=== PATIENT | male | born 2000 | race Caucasian/White ===

== ENCOUNTER 2022-02-06 16:01 | Emergency (ER) | payer BC, OTHER ==
[~2022-02-06] VITALS: Ht 182 cm; Wt 77.0 kg
[2022-02-06] MEDS ORDERED: CLINDAMYCIN 900 MG/50 ML IVPB 50 ML IV ONE (16:45)
[2022-02-06 17:06] LABS: BASOPHILS # (AUTO) 0.1 10^3/uL (0.0-0.1); BASOPHILS % (AUTO) 1 % (0-10); EOSINOPHILS # (AUTO) 0.2 10^3/uL (0.0-0.3); EOSINOPHILS % (AUTO) 2 % (0-10); HEMATOCRIT 46 % (40-54); HEMOGLOBIN 15.6 g/dL (13.3-17.7); LYMPHOCYTES # (AUTO) 1.7 10^3/uL (1.0-4.0); LYMPHOCYTES % (AUTO) 18 % (12-44); MEAN CORPUSCULAR HEMOGLOBIN 31 pg (25-34); MEAN CORPUSCULAR HGB CONC 34 g/dL (32-36); MEAN CORPUSCULAR VOLUME 90 fL (80-99); MEAN PLATELET VOLUME 9.9 fL (9.0-12.2); MONOCYTES # (AUTO) 0.7 10^3/uL (0.0-1.0); MONOCYTES % (AUTO) 7 % (0-12); NEUTROPHILS # (AUTO) 6.6 10^3/uL (1.8-7.8); NEUTROPHILS % (AUTO) 72 % (42-75); PLATELET COUNT 242 10^3/uL (130-400); WHITE BLOOD COUNT 9.2 10^3/uL (4.3-11.0)
[2022-02-06 17:15] LABS: POTASSIUM 4.4 MMOL/L (3.6-5.0)
[2022-02-06 17:17] LABS: CALCIUM 9.2 MG/DL (8.5-10.1)
[2022-02-06 17:21] LABS: CREATININE SERUM 0.99 MG/DL (0.60-1.30)
--- NOTE | 2022-02-06 17:47 | ED General ---
General Chief Complaint: Skin/Wound Problems Stated Complaint: INFECTED TATOO Nursing Triage Note: PT AMB TO [facility] 5 WITH PARENT WITH C/O POSSIBLY HAVING AN INFECTION FROM A TATTOO HE GOT ON JANUARY 30. PT SEEN AT [facility] YESTERDAY AND GIVEN ABX Source of Information: Patient, Family Exam Limitations: No Limitations History of Present Illness Date Seen by Provider: Feb 06, 2022 Time Seen by Provider: 16:27 Initial Comments This 21-year-old young man presents to the emergency room with complaints of infected tattoo along the lateral aspect of the right calf. The tattoo was obtained January 30. He noticed a problem with it on February 02 with increasing redness, heat, and pain. The symptoms have since spread down over the entire foot. He presented to urgent care yesterday and was prescribed erythromycin 250 mg 3 times daily. Symptoms have worsened despite taking antibiotics. He is afebrile and not tachycardic. Parts of the tattoo are weeping. The foot is notably swollen. Allergies and Home Medications Allergies Coded Allergies: Penicillins (Verified Allergy, Unknown, HIVES, 02/06/22) Patient Home Medication List Home Medication List Reviewed: Yes Clindamycin HCl (Clindamycin HCl) 300 Mg Capsule, 300 MG PO QID Prescribed by: DEE DALE on 02/06/221747 Sulfamethoxazole/Trimethoprim (Bactrim Ds Tablet) 1 Each Tablet, 1 EACH PO BID Prescribed by: DEE DALE on 02/06/221747 Review of Systems Review of Systems Constitutional: no symptoms reported EENTM: no symptoms reported Respiratory: no symptoms reported Cardiovascular: no symptoms reported Gastrointestinal: no symptoms reported Genitourinary: no symptoms reported Musculoskeletal: no symptoms reported Skin: see HPI Psychiatric/Neurological: No Symptoms Reported Hematologic/Lymphatic: No Symptoms Reported Immunological/Allergic: no symptoms reported Past Qxceljr-Vphsic-Eskead Hx Patient Social History Tobacco Use?: No Use of E-Cig and/or Vaping dev: No Substance use?: No Alcohol Use?: Yes Alcohol type: Beer Alcohol Frequency: Rarely Pt feels they are or have been: No Immunizations Up To Date First/Initial COVID19 Vaccinat: 2020 Second COVID19 Vaccination Heath: 2020 Past Medical History Surgeries: Yes (Camp teeth) Respiratory: No Cardiac: No Neurological: Yes (Stuttering speech) Reproductive Disorders: No Genitourinary: No Gastrointestinal: No Musculoskeletal: No Endocrine: No HEENT: No Cancer: No Psychosocial: No Integumentary: No Physical Exam Vital Signs Vital Signs - First Documented 02/06/22 16:20 Temp 36.3 Pulse 66 Resp 16 B/P (MAP) 110/79 (89) Capillary Refill : Height, Weight, BMI Height: '" Weight: lbs. oz. kg; 23.00 BMI Method: General Appearance: No Apparent Distress, WD/WN HEENT: PERRL/EOMI, Normal ENT Inspection Neck: Normal Inspection Respiratory: Lungs Clear, Normal Breath Sounds, No Accessory Muscle Use Cardiovascular: Regular Rate, Rhythm, No Edema, No Murmur Gastrointestinal: Non Tender, Soft Extremity: Other (Marked erythema, heat, swelling, and tenderness to the lateral aspect of the right leg and encompassing most of the right foot. Palpable pedal pulse. Sensation and capillary refill intact.) Neurologic/Psychiatric: Alert, Oriented x3, No Motor/Sensory Deficits, Normal Mood/Affect, failure analysis engineer II-XII Norm as Tested Skin: Other (As above. Some areas of tattoo are weeping serous fluid) Focused Exam Lactate Level 02/06/22 17:01: Lactic Acid Level 1.80 Lactic Acid Level Laboratory Tests Test 02/06/22 17:01 Lactic Acid Level 1.80 MMOL/L (0.50-2.00) Progress/Results/Core Measures Suspected Sepsis SIRS Temperature: Pulse: 66 Respiratory Rate: 16 Laboratory Tests 02/06/22 16:47: White Blood Count 9.2 Blood Pressure 110 /79 Mean: 89 02/06/22 17:01: Lactic Acid Level 1.80 Laboratory Tests 02/06/22 16:47: Creatinine 0.99, Platelet Count 242 Results/Orders Lab Results Laboratory Tests Test 02/06/22 16:47 02/06/22 17:01 Range/Units White Blood Count 9.2 4.3-11.0 10^3/uL Red Blood Count 5.08 4.30-5.52 10^6/uL Hemoglobin 15.6 13.3-17.7 g/dL Hematocrit 46 40-54 % Mean Corpuscular Volume 90 80-99 fL Mean Corpuscular Hemoglobin 31 25-34 pg Mean Corpuscular Hemoglobin Concent 34 32-36 g/dL Red Cell Distribution Width 11.9 10.0-14.5 % Platelet Count 242 130-400 10^3/uL Mean Platelet Volume 9.9 9.0-12.2 fL Immature Granulocyte % (Auto) 0 % Neutrophils (%) (Auto) 72 42-75 % Lymphocytes (%) (Auto) 18 12-44 % Monocytes (%) (Auto) 7 0-12 % Eosinophils (%) (Auto) 2 0-10 % Basophils (%) (Auto) 1 0-10 % Neutrophils # (Auto) 6.6 1.8-7.8 10^3/uL Lymphocytes # (Auto) 1.7 1.0-4.0 10^3/uL Monocytes # (Auto) 0.7 0.0-1.0 10^3/uL Eosinophils # (Auto) 0.2 0.0-0.3 10^3/uL Basophils # (Auto) 0.1 0.0-0.1 10^3/uL Immature Granulocyte # (Auto) 0.0 0.0-0.1 10^3/uL Sodium Level 140 135-145 MMOL/L Potassium Level 4.4 3.6-5.0 MMOL/L Chloride Level 107 98-107 MMOL/L Carbon Dioxide Level 21 21-32 MMOL/L Anion Gap 12 5-14 MMOL/L Blood Urea Nitrogen 18 7-18 MG/DL Creatinine 0.99 0.60-1.30 MG/DL Estimat Glomerular Filtration Rate 110 BUN/Creatinine Ratio 18 Glucose Level 104 70-105 MG/DL Calcium Level 9.2 8.5-10.1 MG/DL C-Reactive Protein High Sensitivity 1.17 H 0.00-0.50 MG/DL Lactic Acid Level 1.80 0.50-2.00 MMOL/L My Orders Orders - DEE RUELAS MD Cbc With Automated Diff (02/06/22 16:36) Blood Culture (02/06/22 16:36) Ed Iv/Invasive Line Start (02/06/22 16:36) Lactic Acid Analyzer (02/06/22 16:36) Basic Metabolic Panel (02/06/22 16:36) Hs C Reactive Protein (02/06/22 16:36) Clindamycin 900 Mg/50 Ml Ivpb (Cleocin P (02/06/22 16:45) Medications Given in ED Current Medications Medications Dose Ordered Sig/Keith Route Start Time Stop Time Status Last Admin Dose Admin Clindamycin Phosphate/Dextrose 50 ml @ 100 mls/hr ONCE ONCE IV 02/06/22 16:45 02/06/22 17:14 DC 02/06/22 17:04 100 MLS/HR Vital Signs/I&O 02/06/22 02/06/22 16:20 17:59 Temp 36.3 36.3 Pulse 66 64 Resp 16 16 B/P (MAP) 110/79 (89) 112/80 Capillary Refill : Blood Pressure Mean: 89 Progress Note : Progress Note Basic labs were obtained and blood cultures drawn. Labs were unremarkable in comparison to the physical exam. Patient was treated with clindamycin 900 mg IV. He was prescribed clindamycin and Bactrim. Cephalosporins were not attempted as he has a vague description of whole body hives from penicillin products. Because of vital signs were within normal limits and the labs were unremarkable, patient was not admitted. However, he was given strict return precautions for worsening symptoms. Patient was up-to-date on his tetanus immunization. Departure Impression Primary Impression: Cellulitis of right leg Additional Impression: Infected tattoo Disposition: HOME, SELF-CARE Condition: Improved Departure-Patient Inst. Decision time for Depature: 17:43 Referrals: NO,LOCAL PHYSICIAN (PCP/Family) Primary Care Physician Patient Instructions: Cellulitis (Skin Infection), Adult ED Add. Discharge Instructions: Start clindamycin in the morning. Start Bactrim DS tonight. Complete the entire course of antibiotics as prescribed. Monitor progress of the skin affected by the infection. Take a photo daily from each side in the same orientation in the same lighting to monitor progress. Elevate your foot to the level of your heart or higher as much as possible to help reduce swelling. Do not hang the foot below the level of your knee when elevating. Avoid prolonged periods of time standing on your feet until you have significant improvement in symptoms. Avoid strenuous activity until resolution of the infection. You may take Tylenol (acetaminophen) up to 1000 mg every 6 hours as needed an d/or ibuprofen up to 600 mg every 6 hours as needed for pain. Cool clean towels may also be draped across the skin to provide relief of pain. Return to the emergency room if you develop fevers greater than 100 degrees, significantly spreading redness or swelling despite antibiotics, general feelings of illness or chills, lightheadedness, intense headache, shortness of breath, etc. as these could be signs of developing sepsis. You may also return to the emergency room for a wound check to have a provider v isualize the progress if you are concerned. You should establish with a primary care provider and follow-up with a clinic appointment next week. Call with questions or concerns. All discharge instructions reviewed with patient and/or family. Voiced unders tanding. Scripts Clindamycin HCl (Clindamycin HCl) 300 Mg Capsule 300 MG PO QID, #40 CAP Prov: DEE RUELAS MD 02/06/22 Sulfamethoxazole/Trimethoprim (Bactrim Ds Tablet) 1 Each Tablet 1 EACH PO BID, #20 TAB Prov: DEE RUELAS MD 02/06/22 Work/School Note: Work Release Form Date Seen in the Emergency Department: Feb 06, 2022 Return to Work: Feb 09, 2022 Other Restrictions Listed Below: Avoid prolonged periods of time on your feet until infection resolves. Restrictions: Cover any weeping infection while at work. DEE RUELAS MD Feb 06, 2022 17:47
[2022-02-06] MEDS ORDERED: SULF1TAB38 PO (17:48)
[2022-02-06] MEDS ORDERED: CLIN-144 PO (17:48)
[2022-02-06 17:59] VITALS: BP 112/80
== END 2022-02-06 18:00 | disposition home or self-care (01) ==
LOC: ER 16:06
DX: L81.8 Other specified disorders of pigmentation (principal); L03.115 Cellulitis of right lower limb; Z88.0 Allergy status to penicillin
CPT/HCPCS: 36415; 80048; 83605; 85025; 86141; 87040